=== PATIENT | female | born 1990 | race Caucasian/White ===

== ENCOUNTER 2022-04-01 16:02 | Emergency (ER) | payer BC ==
[2022-04-01 16:10] VITALS: BP 134/78
--- OUTSIDE RECORDS SUMMARY | 2022-04-01 17:55 | EXTERNAL MEDICAL SUMMARY RPT | Continuity of Care Document ---
:1990 Author Organization [facility] Address [address] [place] [address] Phone Allergies No information. Encounters No information. Functional Status No information. Immunizations No information. Medications No information. Problems No information. Procedures date description facility +0000 Visit Code Hold All Results/Labs No information. Social History No information. Vital Signs date measurement value units +0000 BMI BMI 24.84 kg/m2 +0000 BP_diastolic BP_diastolic 79 mm[H g] +0000 BP_systolic BP_systolic 121 mm[Hg] +0000 heart_rate heart_rate 89 /min +0000 height_metric height_metric 175.26 cm +0000 height_standard height_standard 69 in +0000 respiration_rate respiration_rate 16 /min +0000 temperature_metric temperature_metric 36.89 C +0000 temperature_standard temperature_standard 9 8.4 F +0000 weight_metric weight_metric 76.02 kg +0000 weight_standard weight_standard 167.6 lb
--- NOTE | 2022-04-01 18:31 | ED Physician Documentation ---
History of Present Illness - Stated complaint Stated Complaint: VAGINAL BLEED - Chief complaint Chief Complaint: General - History obtained from History obtained from: Patient - Additonal information Additional information: 31-year-old at 6 weeks gestation has had several days worth of spotting now more bleeding with mild cramping. Review of Systems Constitutional: denies: Fever, Chills GI: denies: Abdominal Pain, Nausea, Vomiting PD PAST MEDICAL HISTORY - Past Medical History Past Medical History: No Cardiovascular: None Respiratory: None Neuro: None Endocrine/Autoimmune: None GI: None FINANCIAL SERVICES COUNSELOR: None : None HEENT: None Psych: None Musculoskeletal: None Derm: None - Past Surgical History Past Surgical History: No - Present Medications Home Medications: Ambulatory Orders Medication Instructions Recorded Confirmed Pnv No.95/Ferrous Fum/Folic AC 1 each PO DAILY 04/01/22 04/01/22 [ Tablet] - Allergies Allergies/Adverse Reactions: Allergies Allergy/AdvReac Type Severity Reaction Status Date / Time No Known Drug Allergies Allergy Verified 04/01/22 16:07 - Social History Does the pt smoke?: No Smoking Status: Never smoker Does the pt drink ETOH?: No Does the pt have substance abuse?: No - Immunizations Immunizations are current?: Yes - POLST Patient has POLST: No PD ED PE NORMAL - Vitals Vital signs reviewed: Yes - General General: Alert and oriented X 3, No acute distress - Abdomen Abdomen: Soft, Non tender - Neuro Neuro: Alert and oriented X 3, Normal speech Results - Vitals Vitals: Vital Signs - 24 hr 04/01/22 16:07 Temperature 36.5 C Heart Rate 89 Respiratory 16 Rate Blood Pressure 134/78 H O2 Saturation 99 Oxygen O2 Source Room air - Labs Labs: Laboratory Tests 04/01/22 16:39 Blood Type AB POSITIVE - Rads (name of study) OB sono Radiology: EMP read contemporaneously (5w5d FP/YS, subchorionic hemorrhage) PD MEDICAL DECISION MAKING - ED course ED course: 31-year-old G2, P1 presents with bleeding in early . Ultrasound demonstrating likely IUP but too early for prognostication Case d/w Dr Everett for 1 week f/u sono Departure - Departure Disposition: 01 Home, Self Care Clinical Impression: Threatened Condition: Good Record reviewed to determine appropriate education?: Yes Instructions: ED Miscarriage Poss Follow-Up: [facility] [Provider Group] Comments: Today I discussed your case by phone with Dr. Angelica Everett. She understands the need for follow-up ultrasound in a week. You should call her office tomorrow to arrange for that. Return if worse.
--- NOTE | 2022-04-01 18:39 | Ultrasound Report ---
PROCEDURE: OB First Trimester w/TV INDICATIONS: 1st trimester vag bleeding OUTSIDE/PRIOR DATING DATA: Last menstrual period (LMP): 02/16/2022. LMP-based estimated date of delivery (SUSHANT): 11/23/2022. First dating scan (date and location): 04/01/2022 Estimated date of delivery (SUSHANT) from first dating scan: Not applicable. TECHNIQUE: Real-time scanning was performed of the fetus and maternal pelvic organs, with image documentation. Endovaginal scanning was also performed to better visualize the fetus and maternal ovaries. COMPARISON: None FINDINGS: Embryo: Anechoic fluid collection noted in the lower uterine segment which may represent early gesta tional sac. Possible yolk sac identified. No pole identified. Small 0.7 x 0.6 x 1.0 cm subchori onic/. Presentation oblique. Heart rate: No heart motion identified. Measurement variability in dating: +/- 4 weeks by LMP, +/- 7 days by mean sac diameter (use before 6 weeks gestation if crown-rump length not able to be measured), +/- 5 days by crown-rump length (6-12 weeks gestation). Maternal organs: 1.9 x 1.7 x 1.6 cm thick-walled cyst in the right ovary. IMPRESSION: Anechoic fluid collection lower uterine segment which could represent early , nonviable preg andrew or occult ectopic . Recommend close clinical observation, correlation with serial beta hCG and short-term follow-up ultrasound in one week. 1.9 x 1.7 x 1.6 cm thick-walled right ovarian cyst which could represent a corpus luteal cyst or moo y ectopic . Recommend close: Obtundation, correlation with serial beta hCG and short-term fo llow-up ultrasound one week. Reviewed by: Nessa Spangler MD, PhD on 04/01/2022 6:38 PM PDT Approved by: Nessa Spangler MD, PhD on 04/01/2022 6:38 PM PDT Station ID: [id number]
== END 2022-04-01 18:48 | disposition home or self-care (01) ==
LOC: ED 16:02
DX: O20.0 Threatened abortion (principal); Z3A.01 Less than 8 weeks gestation of pregnancy
CPT/HCPCS: 36415; 84702; 86900; 86901; 99282; 99284

== ENCOUNTER 2022-04-03 12:40 | Outpatient (CLI) | payer BC | END 2022-04-03 12:41 | disposition home or self-care (01) | LOC: LAB 12:40 | PROVIDERS: ATTEND Obstetrics & Gynecology | DX: Z32.01 Encounter for pregnancy test, result positive (principal) | CPT/HCPCS: 36415; 84702 ==

== ENCOUNTER 2022-04-03 15:38 | Emergency (ER) | payer BC ==
--- OUTSIDE RECORDS SUMMARY | 2022-04-03 15:53 | EXTERNAL MEDICAL SUMMARY RPT | Continuity of Care Document ---
:1990 Author Organization [facility] Address [address] [place] [address] Phone Allergies No information. Encounters No information. [...]
--- NOTE | 2022-04-03 15:56 | ED Physician Documentation ---
PD HPI ABD PAIN - Stated complaint Stated Complaint: BLEEDING/ - Chief complaint Chief Complaint: Abd Pain - History obtained from History obtained from: Patient - Additional information Additional information: 31-year-old G1 little over 6 weeks gestation. She was seen 2 nights ago for spotting and had a beta-hCG of 8231 and a pelvic ultrasound demonstrating an anechoic fluid collection in the lower uterine segment of unclear viability as well as a corpus luteum cyst. She had outpatient labs done today and follow-up showing a beta-hCG of 9844. Subsequently this afternoon had a gush of blood with clots. Review of Systems Ten Systems: 10 systems reviewed and negative Cardiac: reports: Reviewed and negative Respiratory: reports: Reviewed and negative PD PAST MEDICAL HISTORY - Past Medical History Cardiovascular: None Respiratory: None Neuro: None Endocrine/Autoimmune: None GI: None PERMIT AGENT: None : None HEENT: None Psych: None Musculoskeletal: None Derm: None - Past Surgical History Past Surgical History: No - Present Medications Home Medications: Ambulatory Orders Medication Instructions Recorded Confirmed Pnv No.95/Ferrous Fum/Folic AC 1 each PO DAILY 04/01/22 04/01/22 [ Tablet] - Allergies Allergies/Adverse Reactions: Allergies Allergy/AdvReac Type Severity Reaction Status Date / Time No Known Drug Allergies Allergy Verified 04/03/22 15:47 - Social History Does the pt smoke?: No Smoking Status: Never smoker Does the pt drink ETOH?: No Does the pt have substance abuse?: No - Immunizations Immunizations are current?: Yes - POLST Patient has POLST: No PD ED PE NORMAL - Vitals Vital signs reviewed: Yes - General General: Alert and oriented X 3, No acute distress - Abdomen Abdomen: Soft, Non tender - Female Female : Other (Pelvic exam done with [employer] present and chaperoning. Clots in the vault which were cleared with a slightly open cervix but no tissue noted.) - Derm Derm: Normal color, Warm and dry - Extremities Extremities: No edema, No calf tenderness / cord - Neuro Neuro: Alert and oriented X 3, Normal speech - Psych Psych: Normal mood, Normal affect Results - Vitals Vitals: Vital Signs - 24 hr 04/03/22 15:43 Temperature 36.9 C Heart Rate 84 Respiratory 14 Rate Blood Pressure 141/91 H O2 Saturation 100 Oxygen O2 Source Room air PD MEDICAL DECISION MAKING - ED course ED course: 31-year-old woman was here the other night for threatened and now had a large gush of blood tonight. To my eye her ultrasound has not changed significantly although her beta-hCG is not risen as we would expect. I offered gynecologic consultation but she is still hopeful that the may progr ess. She understands this is unlikely and will return for worsening symptoms. Departure - Departure Disposition: 01 Home, Self Care Clinical Impression: Threatened Condition: Good Record reviewed to determine appropriate education?: Yes Instructions: ED Miscarriage Poss Comments: As discussed, your beta-hCG has not risen as we would expect. You can continue to monitor your symptoms and return if bleeding worsens or if you start to feel dizzy or pass out etc. Still reasonable to follow-up for the ultrasound next week.
[2022-04-03 18:35] VITALS: BP 123/79
--- NOTE | 2022-04-03 18:45 | Ultrasound Report ---
PROCEDURE: OB First Trimester w/TV INDICATIONS: heavier bleeding OUTSIDE/PRIOR DATING DATA: Last menstrual period (LMP): 02/16/2022. LMP-based estimated date of delivery (SUSHANT): 11/23/2022. First dating scan (date and location): 04/01/2022. Estimated date of delivery (SUSHANT) from first dating scan: Not applicable. Only a gestational sac with yolk sac was noted. The below data below was generated using the LMP SUSHANT of TECHNIQUE: Real-time scanning was performed of the fetus and maternal pelvic organs, with image documentation. Endovaginal scanning was also performed to better visualize the fetus and maternal ovaries. COMPARISON: 04/01/2022 FINDINGS: Again noted is a gestational sac with yolk sac. No cardiac activity or crown-rump le ngth are identified currently. Mean gestational sac measurement of 1.07 cm corresponds to an estimate d gestational age of 5 weeks 6 days. Measurement variability in dating: +/- 4 weeks by LMP, +/- 7 days by mean sac diameter (use before 6 weeks gestation if crown-rump length not able to be measured), +/- 5 days by crown-rump length (6-12 weeks gestation). Maternal organs: Right corpus luteum is seen. IMPRESSION: There is still a very early intrauterine with a gestational sac and yolk sac. A pole or heart rate are still not identified. Comment: Recommend correlation with serial beta hCGs and possible repeat ultrasound in 1-2 weeks. Reviewed by: Brendon Steward MD on 04/03/2022 6:44 PM PDT Approved by: Brendon Steward MD on 04/03/2022 6:44 PM PDT Station ID: [id number]
== END 2022-04-03 18:36 | disposition home or self-care (01) ==
LOC: ED 15:38
DX: O20.0 Threatened abortion (principal); Z3A.01 Less than 8 weeks gestation of pregnancy
CPT/HCPCS: 84702; 99282; 99284